=== PATIENT | female | born 1975 | race Caucasian/White ===

== ENCOUNTER 2016-12-02 00:36 | Inpatient (IN) | payer BC ==
[2016-12-02] VITALS (11 sets, daily range): BP systolic 129–157; BP diastolic 78–102
[~2016-12-02] VITALS: Ht 170.1 cm; Wt 106.1 kg
--- NOTE | ~2016-12-02 | ST ---
[place], [place] EXERCISE STRESS TEST REPORT NAME: GALINA TAYLOR [facility] #: [id number] UNIT #: [id number] ROOM: 424 DOCTOR: ASNA QUINTERO MD BIRTHDATE: [birth year] DOS: INDICATION: Chest pain. PROCEDURE: The patient was exercised on a treadmill using Ramon protocol. The patient exercised for 7 minutes and 15 seconds, reaching 85% of her maximum predicted heart rate. Test was terminated due to achievement of target heart rate and fatigue along with shortness of breath. No complaint of chest pain, chest pressure, heaviness or tightness. Maximum work load was 9 mets. Double product 26,010. BLOOD PRESSURE RESPONSE: Resting blood pressure 124/84 with ending blood pressure 170/100. ELECTROCARDIOGRAM INTERPRETATION: The resting electrocardiogram showed normal sinus rhythm, heart rate of 84. At the peak of the stress test, there was no evidence of any significant ST or T-wave changes suggestive of myocardial ischemia. No arrhythmia. SUMMARY: 1. Adequate stress test with slightly impaired functional capacity. 2. Negative treadmill stress test for stress induced myocardial ischemia. 3. No arrhythmias were noted. 4. Normal blood pressure at rest with slightly hypertensive diastolic blood pressure response to exercise. 5. Myoview results will be reported separately. SANA QUINTERO MD CM:STRESS:EXERCISE STRESS TEST REPORT [id number] SANA QUINTERO MD
--- NOTE | ~2016-12-02 | PR ---
[place], [place] PROGRESS NOTE NAME: GALINA TAYLOR [facility] #: [id number] UNIT #: [id number] ROOM: 424 DOCTOR: SANA QUINTERO MD BIRTHDATE: [birth year] DOS: SUBJECTIVE: The patient is in the stress lab. Denies any specific cardiac complaint. No chest pain, chest pressure, heaviness or tightness. The patient slept well last night. OBJECTIVE: VITAL SIGNS: Blood pressure 125/84, heart rate 80, respiratory rate of 14, temperature 98.7. NECK: Good upstroke, no bruit. HEART: S1, S2 with no rub. LUNGS: Clear to auscultation. LOWER EXTREMITIES: Mild ankle edema. LABORATORY DATA: White count 10.5, hemoglobin 10.9, potassium 3.6, hemoglobin A1c is 7. GFR more than 60%. ASSESSMENT AND PLAN: Presentation with chest pain that did radiate to the jaw while resting in a patient with multiple risk factors. The patient underwent today an adequate stress test, but walking only for 7 minutes on a Ramon protocol, reaching 85% of her maximum predicted heart rate. There was no complaint of chest pain with that. Awaiting the nuclear images, we will continue with current medications including aspirin and Lopressor 50 mg b.i.d. The patient will be discharged home should the stress test be negative for any evidence of ischemia. We will be considering cardiac catheterization for any recurrence of these pains at any time in the future. The patient will be seen back in the clinic on a relatively short period of time, within 4-6 weeks here in [place]. Diet, exercise and weight loss were recommended and emphasized. SANA QUINTERO MD CM:PNTRANS [id number] SANA QUINTERO MD 12/03/162150 interface
--- NOTE | ~2016-12-02 | CON ---
[place], [place] REPORT OF CONSULTATION NAME: GALINA TAYLOR [facility] #: [id number] UNIT #: [id number] ROOM: 424 DOCTOR: INGRID MCKEONMARILYNTWIN BIRTHDATE: [birth year] DOS: REQUESTING PHYSICIAN: Dr. Dao. REASON FOR CONSULTATION: Chest pain. ASSESSMENT: 1. Current presentation with typical complaint of chest pain while resting. 2. Diabetes. 3. Hypertension. 4. Obesity with probable obstructive sleep apnea. 5. Negative CTA of the chest for pulmonary emboli. 6. Reported high heart rate since adulthood with no cardiac symptoms. PLAN: 1. Cycle cardiac enzymes. 2. Check thyroid function test. 3. Keep patient n.p.o. for walking stress test with nuclear in a.m. 4. Echocardiogram. 5. Fasting lipid panel. 6. Enteric-coated aspirin 81 mg. 7. Lopressor 50 mg 1 tab p.o. b.i.d. 8. Cardiac catheterization for recurrent complaint of chest pain while on current medical regimen. 9. Early followup in our clinic in 2-4 weeks upon discharge. 10. A call for any recurrence of chest pain at any time. HISTORY AND PHYSICAL: The patient is a pleasant 41-year-old female unknown to our practice, was referred by Dr. Dao for evaluation of chest pain. Apparently, the patient was sleeping, woke up by this pain which started below the left breast, radiated to her back and subsequently to the shoulder and then to the jaw. This almost persisted an hour until the patient presented to the Emergency Room. It did reach 6/10. There was nausea, but no vomiting or diaphoresis. Apparently, previous to this presentation, the patient had been having some complaint what looks like indigestion that has no relation to activity. 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 She is able to walk more than a mile, but may limitation after that shortness of breath. The patient claimed there is no change in which she could do not compare with 6 months ago. She is active, but does not follow a regular exercise program. Sleeps on one pillow with no reported PND, orthopnea or pedal edema. Never had any symptomatic palpitation, associated dizziness, lightheadedness or near syncope. No fever, no chills, no night sweats, but the patient reports some decreased appetite and feeling weak and tired prior to this presentation. No reported weight loss. PAST MEDICAL HISTORY: As detailed in my assessment. SOCIAL HISTORY: The patient denies any current tobacco, alcohol or illicit drug abuse. [place], [place] REPORT OF CONSULTATION NAME: GALINA TAYLOR UNIT #: [id number] ROOM: 424 DOCTOR: SANA QUINTERO MD BIRTHDATE: [birth year] FAMILY HISTORY: There is no early family history of heart disease. The patient's father is present during this examination, but there is early bypass surgery on paternal grandfather in his 60s. Her mother had multiple mini strokes. Two siblings with no heart problems. CURRENT MEDICATIONS: Metformin, DuoNeb, Restoril, Zofran, morphine, bisacodyl, Tylenol and Zoloft. ALLERGIES: The patient has no known drug allergies. REVIEW OF SYSTEMS: Currently, the patient denies any headache, diplopia or blurry vision. No fever, no chills, no night sweats. No abdominal pain, no bright blood per rectum, no tarry stools, no joint pain, no muscular pain. The patient admits to depression, but no anxiety. No polyuria, no polydipsia, no skin rash. The patient does report snoring at night. Review of other systems has been negative. PHYSICAL EXAMINATION: GENERAL: The patient is alert and temperature 3, quite pleasant, sitting up in bed. The patient's father present at the time of examination at bedside. VITAL SIGNS: Blood pressure 156/94, heart rate 95, respiratory rate of 14, temperature 98.2. HEENT: Extraocular muscles intact. Pupils equal, round and reactive to light. Conjunctivae, no pallor. Throat, no petechiae. NECK: Good upstroke. Unable to appreciate any bruit, no lymphadenopathy, no thyromegaly. HEART: S1, S2 with faint holosystolic murmur in the left upper sternal border. No rub, no retrosternal heave. CHEST AND BACK: No deformities. LUNGS: Decreased air movement, but no ean wheezing or rales. ABDOMEN: Obese, soft, nontender, present bowel sounds. No masses, no bruits. EXTREMITIES: Lower extremities, no edema with good distal pulses. NEUROLOGIC: Grossly nonfocal. SKIN: No significant rash. LABORATORY DATA: White count is 12.0, from yesterday is 16.2; hemoglobin 10.6, previously is 11.3 and there is no left shift. Potassium is 3.6, GFR more than 60%, magnesium 2.3, slightly elevated ALT 42, triglyceride 164, total cholesterol 176, LDL 91, HDL 52. Normal thyroid function test, normal troponin. [place], [place] REPORT OF CONSULTATION NAME: GALINA TAYLOR UNIT #: [id number] ROOM: 424 DOCTOR: SANA QUINTERO MD BIRTHDATE: [birth year] SANA QUINTERO MD CM:CONSTR:REPORT OF CONSULTATION 1103 12/02/16 2243 interface
[2016-12-02 00:52] LABS: HEMATOCRIT 36.2 % (37.0-47.0); HEMOGLOBIN 11.3 g/dl (12.0-16.0); MEAN CELL VOLUME 86.2 fl (81.0-99.0); MEAN CORPUSCULAR HGB 26.9 pg (27.0-31.0); MEAN CORPUSCULAR HGB CONC 31.2 g/dl (33.0-37.0); MEAN PLATELET VOLUME 9.2 fl (9.6-12.3); PLATELET COUNT AUTOMATED 516 10*3/uL (130-400); RED CELL DISTRI WIDTH 13.5 % (0-14.5); WHITE BLOOD COUNT 16.2 10*3/uL (4.8-10.8)
[2016-12-02 01:03] LABS: INTERNATIONAL NORM RATIO 0.9 (2.0-3.5)
[2016-12-02 01:08] LABS: ALBUMIN 3.8 gm/dl (3.1-4.5); ALKALINE PHOSPHATASE 59 U/L (45-117); BUN 18 mg/dl (7-24); CHLORIDE 105 mmol/L (98-107); CREATININE 0.93 mg/dL (0.55-1.02); MAGNESIUM 2.4 mg/dL (1.5-2.1); POTASSIUM 3.6 mmol/L (3.5-5.1); SGOT/AST 43 IU/L (3-35); SGPT/ALT 69 U/L (12-78); SODIUM 140 mmol/L (136-145); TOTAL PROTEIN 8.2 gm/dL (6.4-8.2)
[2016-12-02 01:10] LABS: TROPONIN I < 0.015 ng/ml (<0.045)
[2016-12-02 01:12] LABS: BASOPHILS 1 % (0-1); TOTAL CELLS COUNTED 100 #CELLS
[2016-12-02 01:13] LABS: PLATELET SUFFICIENCY HIGH (NORMAL)
--- NOTE | 2016-12-02 03:00 | NUR ---
A 41, admitted to 4E, under the services of CHAU Crabtree DO with a diagnosis of CHEST PAIN. Chief complaint is CHEST PAIN. Patient arrived via wheel chair from ER. Monitor applied. Initial assessment completed. Vital signs taken and recorded. CHAU CRABTREE DO notified of admission to the unit. Orders received. See assessment for past medical history, medications and allergies. Patient and/or family oriented to unit. visitation policy reviewed. Clothing/patient valuable form completed. DOUG CHAVEZ
[2016-12-02] MEDS ORDERED: METFORMIN1000 MG PO (03:55)
[2016-12-02] MEDS ORDERED: MULTIVITAMINS1 EAC5 PO (03:56)
[2016-12-02] MEDS ORDERED: TOPROL XL25 MG PO (03:56)
[2016-12-02] MEDS ORDERED: PROZAC10 MG PO (03:56)
--- NOTE | 2016-12-02 03:57 | NUR ---
MED REC UP TO DATE PER PATIENT
[2016-12-02 07:20] LABS: BASO # 0.1 10*3/uL (0.0-0.1); BASO % 0.7 % (0.0-1.0); EOS # 0.1 10*3/uL (0.0-0.4); EOS % 0.6 % (1.0-4.0); HEMATOCRIT 33.9 % (37.0-47.0); HEMOGLOBIN 10.6 g/dl (12.0-16.0); LYMPH # 3.5 10*3/uL (1.3-4.4); LYMPH % 29.1 % (27.0-41.0); MEAN CELL VOLUME 85.2 fl (81.0-99.0); MEAN CORPUSCULAR HGB 26.6 pg (27.0-31.0); MEAN CORPUSCULAR HGB CONC 31.3 g/dl (33.0-37.0); MEAN PLATELET VOLUME 9.3 fl (9.6-12.3); MONO % 7.9 % (3.0-9.0); NEUT # 7.4 10*3/uL (2.3-7.9); NEUT % 61.5 % (47.0-73.0); PLATELET COUNT AUTOMATED 468 10*3/uL (130-400); RED BLOOD COUNT 3.98 10*6/uL (4.10-5.10); RED CELL DISTRI WIDTH 13.5 % (0-14.5)
[2016-12-02 07:38] LABS: ALBUMIN 3.4 gm/dl (3.1-4.5); ALKALINE PHOSPHATASE 60 U/L (45-117); BUN 16 mg/dl (7-24); CHLORIDE 104 mmol/L (98-107); CHOLESTEROL 176 mg/dL (<200); FREE T4 1.08 ng/dl (0.76-1.46); HDL CHOLESTEROL 52 mg/dl (40-60); LDL CHOLESTEROL 91 mg/dL (9-159); MAGNESIUM 2.3 mg/dL (1.5-2.1); PHOSPHOROUS 2.8 mg/dL (2.5-4.9); POTASSIUM 3.6 mmol/L (3.5-5.1); SGOT/AST 42 IU/L (3-35); SGPT/ALT 66 U/L (12-78); SODIUM 139 mmol/L (136-145); TOTAL PROTEIN 7.9 gm/dL (6.4-8.2); TRIGLYCERIDES 164 mg/dl (<150); VLDL CHOLESTEROL 33 mg/dL (6-40)
[2016-12-02 07:40] LABS: ACT PARTIAL THROMBO TIME 21.2 SECONDS (20.8-31.5); INTERNATIONAL NORM RATIO 0.9 (2.0-3.5)
--- NOTE | 2016-12-02 07:42 | NUR ---
Shift chart check completed.
[2016-12-02 08:10] LABS: VITAMIN D, 25-HYDROXY 38.2 ng/mL (30-100)
--- NOTE | 2016-12-02 09:00 | NUR ---
Product Safety Officer in to talk to patient. Patient states lives at home with family. There are few steps in the home. Physician: sandy [facility] health services: none Patient's level of ADLs: INDEPENDENT Patient has working utilities: all working DME: none Follow-up physician's appointment after d/c: will be made by hospitalist nurse director upon discharge Does patient want to access PORTAL?: no Discharge plan discussed with patient, patient states she is independent inadls and ambulation, denies any home needs. CANELO FARAH
--- NOTE | 2016-12-02 10:08 | NUR ---
VREIFIED MEDS WITH [facility]
--- NOTE | 2016-12-02 10:13 | NUR ---
DR CARSON AWARE MEDS ARE VERIFIED
--- NOTE | 2016-12-02 10:25 | NUR ---
CONSULT CALLED TO PEDRO LUIS AT [facility]
--- NOTE | 2016-12-02 20:00 | NUR ---
ASSUMED CARE OF PATIENT. ASSESSMENT COMPLETE. RESTING IN BED. CALL LIGHT IN REACH. WILL CONTINUE TO MONITOR.
[2016-12-03] VITALS: BP 134/83
--- NOTE | 2016-12-03 02:00 | NUR ---
SLEEPING. RESP EASY AND NONLABORED ON ROOM AIR. NO DISTRESS NOTED. CM INTACT. CALL LIGHT IN REACH. WILL CONTINUE TO MONITOR.
[2016-12-03 06:03] LABS: BASO # 0.1 10*3/uL (0.0-0.1); BASO % 0.9 % (0.0-1.0); EOS # 0.1 10*3/uL (0.0-0.4); EOS % 1.2 % (1.0-4.0); HEMATOCRIT 35.4 % (37.0-47.0); HEMOGLOBIN 10.9 g/dl (12.0-16.0); LYMPH # 3.5 10*3/uL (1.3-4.4); LYMPH % 33.1 % (27.0-41.0); MEAN CELL VOLUME 87.6 fl (81.0-99.0); MEAN CORPUSCULAR HGB CONC 30.8 g/dl (33.0-37.0); MEAN PLATELET VOLUME 9.6 fl (9.6-12.3); MONO # 0.9 10*3/uL (0.1-1.0); MONO % 8.4 % (3.0-9.0); NEUT # 5.9 10*3/uL (2.3-7.9); PLATELET COUNT AUTOMATED 479 10*3/uL (130-400); RED BLOOD COUNT 4.04 10*6/uL (4.10-5.10); RED CELL DISTRI WIDTH 13.5 % (0-14.5); WHITE BLOOD COUNT 10.5 10*3/uL (4.8-10.8)
[2016-12-03 08:00] VITALS: BP 125/84
--- NOTE | 2016-12-03 09:00 | NUR ---
case management visits with patient, patient denies any home needs
--- NOTE | 2016-12-03 09:26 | NUR ---
PT OFF FLOOR FOR SCHEDULED STRESS TEST.
--- NOTE | 2016-12-03 11:00 | NUR ---
INFORMED CONSENT OBTAINED FOR EXERCISE CARDIOLITE STRESS TEST WITH DR. QUINTERO. RESTING EKG NSR WITH A SUPINE HR OF 84 AND BP OF 124/84 AND HR OF 85 WITH BP OF 132/80 IN STANDING POSITION. PT COMPLETED 7:15 OF A CORDELL PROTOCOL WITH COMPLETION OF 1:15 OF STAGE III AT 3.4 MPH AND 14% GRADE. REACHED A PEAK HR OF 153 WHICH IS 85% OF PREDICTED MAX WITH PEAK BP OF 170/100. TEST TERMINATED BECAUSE OF FATIGUE AND SOB. HAD NO EKG CHANGES OR ANY CHEST PAIN. HAS AN AVERAGE EXERCISE TOLERANCE. LAST RECOVERY HR OF 89 WITH BP OF 124/86. TO NUCLEAR MEDICINE POST RECOVERY IN STABLE CONDITION FOR SCANNING.
--- NOTE | 2016-12-03 11:35 | NUR ---
PATIENT RETURNED TO FLOOR AT THIS TIME.
[2016-12-03 12:00] VITALS: BP 122/70
--- NOTE | 2016-12-03 12:38 | NUR ---
FLU VACCINE OFFERED PER POLICY AND PATIENT REFUSED.
[2016-12-03 16:00] VITALS: BP 145/77
[2016-12-03] MEDS ORDERED: METOPROLOL TART50 M1 PO (16:31)
--- NOTE | 2016-12-03 17:34 | NUR ---
Discharge instructions reviewed with patient/family. Patient receptive and verbalizes understanding. Follow-up care arranged. Written instructions given to patient/family. FRANK COPELAND.
== END 2016-12-03 17:34 | disposition home or self-care (01) | DRG 313 ==
LOC: ED 00:36 → 4E 02:33 → EDHOLD 02:33 → 4E 02:38
PROVIDERS: Hospitalist; Internal Medicine; Student in an Organized Health Care Education/Training Program; ADMIT Internal Medicine
PROC: 4A02XM4 Measurement of Cardiac Total Activity, External Approach (ICD-10-PCS; principal; 2016-12-03)
DX: R07.9 Chest pain, unspecified (principal); E11.65 Type 2 diabetes mellitus with hyperglycemia; I10 Essential (primary) hypertension; F33.9 Major depressive disorder, recurrent, unspecified; E83.41 Hypermagnesemia; E78.1 Pure hyperglyceridemia; R00.0 Tachycardia, unspecified; D72.829 Elevated white blood cell count, unspecified; D72.825 Bandemia; D64.9 Anemia, unspecified; D47.3 Essential (hemorrhagic) thrombocythemia; R74.0 Nonspecific elevation of levels of transaminase and lactic acid dehydrogenase [LDH]; E66.9 Obesity, unspecified; Z82.3 Family history of stroke; Z82.49 Family history of ischemic heart disease and other diseases of the circulatory system; Z79.899 Other long term (current) drug therapy; Z68.36 Body mass index [BMI] 36.0-36.9, adult

== ENCOUNTER → 2019-04-17 | Outpatient (CLI) | payer BC ==
[~2019-04-17] MED LIST: METFORMIN1000 MG PO; METOPROLOL TART50 M1 PO; MULTIVITAMINS1 EAC5 PO; PROZAC10 MG PO; TOPROL XL25 MG PO
[2019-04-17 08:49] LABS: HEMATOCRIT 34.5 % (37.0-47.0); HEMOGLOBIN 9.9 g/dl (12.0-16.0); MEAN CORPUSCULAR HGB 22.1 pg (27.0-31.0); MEAN CORPUSCULAR HGB CONC 28.7 g/dl (33.0-37.0); RED BLOOD COUNT 4.48 10*6/uL (4.10-5.10); RED CELL DISTRI WIDTH 16.2 % (0-14.5); WHITE BLOOD COUNT 11.6 10*3/uL (4.8-10.8)
[2019-04-17 09:12] LABS: ALBUMIN 3.2 gm/dl (3.1-4.5); ALKALINE PHOSPHATASE 79 U/L (45-117); BUN 13 mg/dl (7-24); CHLORIDE 104 mmol/L (98-107); CHOLESTEROL 161 mg/dL (<200); CREATININE 0.75 mg/dL (0.55-1.02); HDL CHOLESTEROL 42 mg/dl (40-60); LDL CHOLESTEROL 93 mg/dL (9-159); POTASSIUM 3.8 mmol/L (3.5-5.1); SGOT/AST 63 IU/L (3-35); SGPT/ALT 73 U/L (12-78); SODIUM 139 mmol/L (136-145); TOTAL PROTEIN 7.9 gm/dL (6.4-8.2); TRIGLYCERIDES 128 mg/dl (<150); VLDL CHOLESTEROL 26 mg/dL (6-40)
== END | disposition home or self-care (01) ==
LOC: LAB 07:49
PROVIDERS: Family Medicine
DX: E55.9 Vitamin D deficiency, unspecified (principal); E11.9 Type 2 diabetes mellitus without complications; I10 Essential (primary) hypertension; R53.83 Other fatigue

== ENCOUNTER → 2019-09-14 | Outpatient (CLI) | payer BC ==
[2019-09-14 08:07] LABS: HEMATOCRIT 36.9 % (37.0-47.0); MEAN CELL VOLUME 85.2 fl (81.0-99.0); MEAN CORPUSCULAR HGB 25.9 pg (27.0-31.0); MEAN CORPUSCULAR HGB CONC 30.4 g/dl (33.0-37.0); MEAN PLATELET VOLUME 9.6 fl (9.6-12.3); RED BLOOD COUNT 4.33 10*6/uL (4.10-5.10); RED CELL DISTRI WIDTH 14.3 % (0-14.5); WHITE BLOOD COUNT 11.1 10*3/uL (4.8-10.8)
[2019-09-14 08:35] LABS: ALBUMIN 3.4 gm/dl (3.1-4.5); BUN 11 mg/dl (7-24); CHLORIDE 106 mmol/L (98-107); CHOLESTEROL 156 mg/dL (<200); CREATININE 0.86 mg/dL (0.55-1.02); POTASSIUM 3.9 mmol/L (3.5-5.1); SGOT/AST 38 IU/L (3-35); SGPT/ALT 49 U/L (12-78); SODIUM 139 mmol/L (136-145); TOTAL PROTEIN 8.1 gm/dL (6.4-8.2); TRIGLYCERIDES 121 mg/dl (<150); VLDL CHOLESTEROL 24 mg/dL (6-40)
[2019-09-14 08:37] LABS: ALKALINE PHOSPHATASE 56 U/L (45-117); CPK 58 U/L (26-192); HDL CHOLESTEROL 44 mg/dl (40-60); LDL CHOLESTEROL 88 mg/dL (9-159)
== END | disposition home or self-care (01) ==
LOC: LAB 07:40
PROVIDERS: Family Medicine
DX: E89.0 Postprocedural hypothyroidism (principal); E55.9 Vitamin D deficiency, unspecified

== ENCOUNTER → 2020-02-24 | Outpatient (CLI) | payer BC | END | disposition home or self-care (01) | LOC: COVID19 12:32 | PROVIDERS: ATTEND Family Medicine | DX: Z20.828 Contact with and (suspected) exposure to other viral communicable diseases (principal) ==

== ENCOUNTER → 2021-10-02 | Outpatient (CLI) | payer BC ==
[2021-10-02 07:46] LABS: HEMATOCRIT 28.3 % (37.0-47.0); MEAN CELL VOLUME 66.6 fl (81.0-99.0); MEAN CORPUSCULAR HGB 17.9 pg (27.0-31.0); MEAN CORPUSCULAR HGB CONC 26.9 g/dl (33.0-37.0); MEAN PLATELET VOLUME 8.5 fl (9.6-12.3); RED BLOOD COUNT 4.25 10*6/uL (4.10-5.10); RED CELL DISTRI WIDTH 17.8 % (0-14.5); WHITE BLOOD COUNT 12.3 10*3/uL (4.8-10.8)
[2021-10-02 08:04] LABS: ALKALINE PHOSPHATASE 54 U/L (45-117); BUN 11 mg/dl (7-24); CHLORIDE 105 mmol/L (98-107); CHOLESTEROL 195 mg/dL (<200); CPK 48 U/L (26-192); CREATININE 0.74 mg/dL (0.55-1.02); LDL CHOLESTEROL 112 mg/dL (9-159); POTASSIUM 4.1 mmol/L (3.5-5.1); SGOT/AST 10 IU/L (3-35); SGPT/ALT 14 U/L (12-78); SODIUM 137 mmol/L (136-145); TOTAL PROTEIN 7.6 gm/dL (6.4-8.2); TRIGLYCERIDES 118 mg/dl (<150)
[2021-10-02 08:05] LABS: FREE T4 0.89 ng/dl (0.76-1.46)
[2021-10-02 08:44] LABS: VITAMIN D, 25-HYDROXY 29.5 ng/mL (30-100)
== END | disposition home or self-care (01) ==
LOC: LAB 07:29
PROVIDERS: ATTEND Family Medicine
DX: E11.9 Type 2 diabetes mellitus without complications (principal); I10 Essential (primary) hypertension; E78.00 Pure hypercholesterolemia, unspecified; E55.9 Vitamin D deficiency, unspecified; D64.9 Anemia, unspecified; R53.83 Other fatigue; K21.9 Gastro-esophageal reflux disease without esophagitis

== ENCOUNTER → 2022-01-17 | Outpatient (CLI) | payer BC ==
[~2022-01-17] MED LIST changes: +LOPRESSOR25 MG PO; +TRULICITY3 MG/0.5 M SQ
[2022-01-17 10:11] LABS: HEMATOCRIT 35.4 % (37.0-47.0); MEAN CELL VOLUME 74.4 fl (81.0-99.0); MEAN CORPUSCULAR HGB CONC 28.2 g/dl (33.0-37.0); MEAN PLATELET VOLUME 8.8 fl (9.6-12.3); RED BLOOD COUNT 4.76 10*6/uL (4.10-5.10); RED CELL DISTRI WIDTH 30.1 % (0-14.5); WHITE BLOOD COUNT 10.5 10*3/uL (4.8-10.8)
== END ==
LOC: LAB 09:50
PROVIDERS: ATTEND Family Medicine
DX: D64.9 Anemia, unspecified (principal)

== ENCOUNTER → 2022-02-21 | Outpatient (CLI) | payer BC | END | disposition home or self-care (01) | LOC: MAMMO 00:18 | PROVIDERS: ATTEND Obstetrics & Gynecology | DX: Z12.31 Encounter for screening mammogram for malignant neoplasm of breast (principal) ==

== ENCOUNTER → 2022-05-10 | Outpatient (CLI) | payer BC ==
[2022-05-10 08:47] LABS: HEMATOCRIT 39.4 % (37.0-47.0); MEAN CELL VOLUME 85.1 fl (81.0-99.0); MEAN CORPUSCULAR HGB 26.1 pg (27.0-31.0); MEAN CORPUSCULAR HGB CONC 30.7 g/dl (33.0-37.0); MEAN PLATELET VOLUME 8.8 fl (9.6-12.3); RED BLOOD COUNT 4.63 10*6/uL (4.10-5.10); WHITE BLOOD COUNT 9.8 10*3/uL (4.8-10.8)
[2022-05-10 09:04] LABS: ALKALINE PHOSPHATASE 48 U/L (46-116); BUN 13 mg/dl (9-23); CHLORIDE 101 mmol/L (98-107); POTASSIUM 4.3 mmol/L (3.4-5.1); SGPT/ALT 11 U/L (10-49); TOTAL PROTEIN 7.9 gm/dL (6.0-8.0)
== END | disposition home or self-care (01) ==
LOC: LAB 08:30
PROVIDERS: ATTEND Family Medicine
DX: D64.9 Anemia, unspecified (principal); E74.9 Disorder of carbohydrate metabolism, unspecified

== ENCOUNTER → 2022-09-02 | Outpatient (CLI) | payer BC ==
[2022-09-02 09:30] LABS: HEMATOCRIT 39.5 % (37.0-47.0); MEAN CELL VOLUME 89.2 fl (81.0-99.0); MEAN CORPUSCULAR HGB 28.7 pg (27.0-31.0); MEAN CORPUSCULAR HGB CONC 32.2 g/dl (33.0-37.0); MEAN PLATELET VOLUME 9.3 fl (9.6-12.3); RED BLOOD COUNT 4.43 10*6/uL (4.10-5.10); RED CELL DISTRI WIDTH 13.7 % (0-14.5); WHITE BLOOD COUNT 8.4 10*3/uL (4.8-10.8)
[2022-09-02 09:57] LABS: ALKALINE PHOSPHATASE 51 U/L (46-116); BUN 8 mg/dl (9-23); CHLORIDE 104 mmol/L (98-107); CHOLESTEROL 182 mg/dL (<200); CPK 60 U/L (34-171); LDL CHOLESTEROL 112 mg/dL (9-159); POTASSIUM 4.3 mmol/L (3.4-5.1); SGPT/ALT 7 U/L (10-49); TOTAL PROTEIN 7.6 gm/dL (6.0-8.0); TRIGLYCERIDES 110 mg/dl (<150)
== END | disposition home or self-care (01) ==
LOC: LAB 09:05 → US 10:00
PROVIDERS: ATTEND Family Medicine
DX: K76.0 Fatty (change of) liver, not elsewhere classified (principal); R10.11 Right upper quadrant pain

== ENCOUNTER → 2023-02-04 | Outpatient (CLI) | payer BC ==
[2023-02-04 11:31] LABS: HEMATOCRIT 41.2 % (37.0-47.0); MEAN CELL VOLUME 89.2 fl (81.0-99.0); MEAN CORPUSCULAR HGB 29.2 pg (27.0-31.0); MEAN CORPUSCULAR HGB CONC 32.8 g/dl (33.0-37.0); MEAN PLATELET VOLUME 9.1 fl (9.6-12.3); RED BLOOD COUNT 4.62 10*6/uL (4.10-5.10); RED CELL DISTRI WIDTH 12.4 % (0-14.5); WHITE BLOOD COUNT 11.4 10*3/uL (4.8-10.8)
[2023-02-04 12:07] LABS: ALKALINE PHOSPHATASE 58 U/L (46-116); BUN 9 mg/dl (9-23); CHLORIDE 106 mmol/L (98-107); CHOLESTEROL 179 mg/dL (<200); FREE T4 0.93 ng/dl (0.89-1.76); LDL CHOLESTEROL 77 mg/dL (9-159); SGPT/ALT 19 U/L (5-49); TOTAL PROTEIN 7.8 gm/dL (6.0-8.0); TRIGLYCERIDES 263 mg/dl (<150)
== END | disposition home or self-care (01) ==
LOC: LAB 11:08
PROVIDERS: ATTEND Family Medicine
DX: E11.9 Type 2 diabetes mellitus without complications (principal); D64.9 Anemia, unspecified; I10 Essential (primary) hypertension; R42 Dizziness and giddiness

== ENCOUNTER → 2023-12-05 | Outpatient (CLI) | payer BC ==
[2023-12-05 07:43] LABS: HEMATOCRIT 39.8 % (37.0-47.0); MEAN CELL VOLUME 90.9 fl (81.0-99.0); MEAN CORPUSCULAR HGB 28.8 pg (27.0-31.0); MEAN CORPUSCULAR HGB CONC 31.7 g/dl (33.0-37.0); RED BLOOD COUNT 4.38 10*6/uL (4.10-5.10); RED CELL DISTRI WIDTH 12.6 % (0-14.5); WHITE BLOOD COUNT 10.5 10*3/uL (4.8-10.8)
[2023-12-05 08:37] LABS: VITAMIN D, 25-HYDROXY 30.5 ng/mL (30-100)
[2023-12-05 08:41] LABS: ALKALINE PHOSPHATASE 54 U/L (46-116); BUN 10 mg/dl (9-23); CHLORIDE 100 mmol/L (98-107); CHOLESTEROL 185 mg/dL (<200); CPK 77 U/L (34-171); LDL CHOLESTEROL 93 mg/dL (9-159); POTASSIUM 4.4 mmol/L (3.4-5.1); SGPT/ALT 47 U/L (5-49); TOTAL PROTEIN 7.7 gm/dL (6.0-8.0); TRIGLYCERIDES 209 mg/dl (<150)
== END | disposition home or self-care (01) ==
LOC: LAB 07:20
PROVIDERS: ATTEND Family Medicine
DX: I10 Essential (primary) hypertension (principal); R53.83 Other fatigue; E55.9 Vitamin D deficiency, unspecified; D64.9 Anemia, unspecified; E11.9 Type 2 diabetes mellitus without complications; E78.00 Pure hypercholesterolemia, unspecified

== ENCOUNTER 2024-01-12 11:46 | Emergency (ER) | payer BC ==
[~2024-01-12] VITALS: Ht 170.1 cm; Wt 88.5 kg
[2024-01-12] MEDS ORDERED: ROSUVASTATIN CAL5 MG PO (12:02)
[2024-01-12] MEDS ORDERED: MOUNJARO5 MG/0.51 SQ (12:02)
[2024-01-12] MEDS ORDERED: METOPROLOL SUCC50 M1 PO (12:02)
[2024-01-12 12:30] LABS: BASO # 0.1 10*3/uL (0.0-0.1); BASO % 0.6 % (0.0-1.0); EOS # 0.1 10*3/uL (0.0-0.4); EOS % 1.4 % (1.0-4.0); HEMATOCRIT 39.8 % (37.0-47.0); LYMPH # 3.2 10*3/uL (1.3-4.4); LYMPH % 31.7 % (27.0-41.0); MEAN CELL VOLUME 92.6 fl (81.0-99.0); MEAN CORPUSCULAR HGB 28.6 pg (27.0-31.0); MEAN CORPUSCULAR HGB CONC 30.9 g/dl (33.0-37.0); MEAN PLATELET VOLUME 8.8 fl (9.6-12.3); MONO # 0.8 10*3/uL (0.1-1.0); MONO % 7.8 % (3.0-9.0); NEUT # 5.9 10*3/uL (2.3-7.9); NEUT % 57.9 % (47.0-73.0); PLATELET COUNT AUTOMATED 356 10*3/uL (130-400); RED CELL DISTRI WIDTH 12.4 % (0-14.5); WHITE BLOOD COUNT 10.1 10*3/uL (4.8-10.8)
[2024-01-12 12:45] LABS: ACT PARTIAL THROMBO TIME 26.9 SECONDS (20.0-32.1)
[2024-01-12 12:50] LABS: BUN 13 mg/dl (9-23); CHLORIDE 105 mmol/L (98-107)
[2024-01-12] MEDS ORDERED: ASPIRIN, CHEWABLE 81 MG TAB PO ONE (12:50)
[2024-01-12 12:58] LABS: BETA-HCG, QUANT < 3.0 mIU/mL (3-10)
[2024-01-12 13:56] VITALS: BP 144/76
== END 2024-01-12 15:12 | disposition home or self-care (01) ==
LOC: ED 11:46
PROVIDERS: Internal Medicine
DX: R07.89 Other chest pain (principal); I10 Essential (primary) hypertension; E78.5 Hyperlipidemia, unspecified; E11.9 Type 2 diabetes mellitus without complications; R10.2 Pelvic and perineal pain; Z98.890 Other specified postprocedural states

== ENCOUNTER → 2024-04-19 | Outpatient (CLI) | payer BC ==
[~2024-04-19] MED LIST changes: +METOPROLOL SUCC50 M1 PO; +MOUNJARO5 MG/0.51 SQ; +ROSUVASTATIN CAL5 MG PO
== END | disposition home or self-care (01) ==
LOC: RAD 07:24
PROVIDERS: ATTEND Family Medicine
DX: M25.552 Pain in left hip (principal); M54.50 Low back pain, unspecified; M25.562 Pain in left knee

== ENCOUNTER → 2024-12-28 | Outpatient (CLI) | payer BC ==
[~2024-12-28] MED LIST changes: +Technetium Tc 99M Tetrofosmi 0.23 MG KIT IJ SCH
== END | disposition home or self-care (01) ==
LOC: CARD 02:11
PROVIDERS: ATTEND Internal Medicine Cardiovascular Disease
DX: I20.9 Angina pectoris, unspecified (principal); E11.9 Type 2 diabetes mellitus without complications; Z82.49 Family history of ischemic heart disease and other diseases of the circulatory system

== ENCOUNTER → 2025-01-21 | Outpatient (CLI) | payer BC ==
[~2025-01-21] MED LIST changes: -Technetium Tc 99M Tetrofosmi 0.23 MG KIT IJ SCH
[2025-01-21 07:29] LABS: MEAN CELL VOLUME 89.1 fl (81.0-99.0); MEAN CORPUSCULAR HGB 29.5 pg (27.0-31.0); MEAN PLATELET VOLUME 9.1 fl (9.6-12.3); NUCLEATED RED BLOOD CELL 0.0 % (0.0-0.0); NUCLEATED RED BLOOD CELL 0.0 10*3/uL (0.0-0.0); PLATELET COUNT AUTOMATED 358.0 10*3/uL (130-400); RED CELL DISTRI WIDTH 12.4 % (0-14.5)
[2025-01-21 08:06] LABS: BUN 11 mg/dl (9-23); CPK 50 U/L (34-171); LDL CHOLESTEROL 90 mg/dL (9-159); SGPT/ALT 19 U/L (5-49)
== END | disposition home or self-care (01) ==
LOC: LAB 01:27 → US 13:00
PROVIDERS: ATTEND Nurse Practitioner Women's Health
DX: D25.9 Leiomyoma of uterus, unspecified (principal); N88.8 Other specified noninflammatory disorders of cervix uteri; I10 Essential (primary) hypertension; E11.9 Type 2 diabetes mellitus without complications; E78.00 Pure hypercholesterolemia, unspecified

== ENCOUNTER → 2025-03-14 | Day surgery (SDC) | payer BC ==
[2025-03-12 09:09] LABS: BASO # 0.1 10*3/uL (0.0-0.1); BASO % 0.8 % (0.0-1.0); EOS # 0.2 10*3/uL (0.0-0.4); EOS % 1.6 % (1.0-4.0); MEAN CELL VOLUME 89.5 fl (81.0-99.0); MEAN CORPUSCULAR HGB 28.7 pg (27.0-31.0); MEAN PLATELET VOLUME 9.1 fl (9.6-12.3); MONO # 0.6 10*3/uL (0.1-1.0); MONO % 6.7 % (3.0-9.0); NEUT # 5.4 10*3/uL (2.3-7.9); NEUT % 57.0 % (47.0-73.0); NUCLEATED RED BLOOD CELL 0.0 % (0.0-0.0); NUCLEATED RED BLOOD CELL 0.0 10*3/uL (0.0-0.0); PLATELET COUNT AUTOMATED 440 10*3/uL (130-400); RED CELL DISTRI WIDTH 12.3 % (0-14.5)
[2025-03-12 10:14] LABS: BUN 11 mg/dl (9-23)
[~2025-03-14] VITALS: Ht 170.1 cm; Wt 88.5 kg
[~2025-03-14] MED LIST changes: +ACETAMINOPHEN 100 ML IV ONE; +ALBUTEROL 8 GM INHALER INH ONE; +Dexamethasone Sodium Phospha 4 MG/ML VIAL IV ONE; +EPINEPHrine/Lidocaine Hydroc 20 ML VIAL ONE; +FERRIC SUBSULFATE 8 ML VIAL ONE; +Lactated Ringer's Solution 1,000 ML IV ONE; +Lidocaine Hydrochloride 5 ML VIAL IV ONE; +Midazolam Hydrochloride 2 MG/2 ML VIAL IV ONE; +Ondansetron Hydrochloride 4 MG/2 ML VIAL IV ONE; +PROPOFOL 200 MG/20 ML VIAL IV ONE; +Phenylephrine Hydrochloride 10 MG/ML VIAL IV ONE; +SEVOFLURANE 250 ML BOT INH ONE; +SODIUM CHLORIDE 0.9% 100 ML IV ONE; +TRULICITY0.75 MG/0. SC
[2025-03-14 06:56] VITALS: BP 152/90
[2025-03-14 08:42] VITALS: BP 150/83
[2025-03-14 08:57] VITALS: BP 122/70
[2025-03-14 09:12] VITALS: BP 114/75
[2025-03-14 09:27] VITALS: BP 111/78
[2025-03-14 09:42] VITALS: BP 123/74
== END | disposition home or self-care (01) ==
LOC: SDC 03-11 02:22
PROVIDERS: ATTEND Obstetrics & Gynecology
DX: N92.0 Excessive and frequent menstruation with regular cycle (principal); N87.0 Mild cervical dysplasia